=== PATIENT | male | born 1955 | race Caucasian/White ===

== ENCOUNTER 2020-10-01 09:20 | Inpatient (IN) ==
--- NOTE | 2020-09-16 12:47 | PAT Medication Instructions ---
Medication Instructions Date of Service September 16, 2020 Home Medications amlodipine 10 mg PO QAM aspirin 81 mg PO QAM gabapentin 300 mg PO TID hydrochlorothiazide 25 mg PO QAM lisinopril 40 mg PO QAM meloxicam 15 mg PO DAILY PRN tramadol 50 mg PO BID PRN ASK your surgeon for instructions aspirin 81 mg PO QAM meloxicam 15 mg PO DAILY PRN DO NOT take the morning of surgery hydrochlorothiazide 25 mg PO QAM lisinopril 40 mg PO QAM Take morning of surgery With a small sip of water, OTHERWISE NOTHING TO EAT OR DRINK AFTER MIDNIGHT: amlodipine 10 mg PO QAM gabapentin 300 mg PO TID tramadol 50 mg PO BID PRN (if needed, may be taken up to four hours before surgery) Take evening before surgery gabapentin 300 mg PO TID tramadol 50 mg PO BID PRN (if needed) Other Notes If you have any questions please call us at [phone] or [phone] or [phone] or [phone]
--- NOTE | 2020-09-17 14:37 | Anesthesiology Consultation ---
Date of Service September 17, 2020 Assessment & Plan (1) Encounter for pre-operative examination: COVID Status: As of 09/17 assessment, patient denies travel to endemic area, known exposure/sick contacts, or symptoms of COVID19. Patient advised to adhere to social distancing guidelines, wear a mask in public and avoid large crowds or unnecessary travel in the 2 weeks leading up to surgery. Preoperative COVID19 testing to be completed prior to surgery per surgeon's arrangements. Patient encouraged to be extra cautious/conscientious with COVID precautions between COVID testing and surgery. Note sent to PCP re: abnormal CXR. Chart Review Chart Review: Acceptable Risk for Surgery (pending surgeon-orderred PCP clearance) and Patient seen in Pre Admission Testing Teaching & Discussion Instructed NPO after midnight before surgery, except medications with 15 cc of water. Medication instructions provided according to the PAT guidelines. History Surgery Operation Date: 10/01/20 09:20 Proposed Procedures p Left Posterior Total Hip Arthroplasty - Daron Mendoza DO Height/Weight Height: 5 ft 11 in Weight: 113.4 kg Allergies Allergy/AdvReac Type Severity Reaction Status Date / Time Xpyybrh-Kzv-Aqw Reductase Allergy Mild hives, n/v Verified 09/04/20 12:34 Inhibitor Medications Home Medications Medication Instructions Recorded Confirmed Last Taken amlodipine 10 mg PO QAM 09/04/20 09/04/20 Unknown aspirin 81 mg PO QAM 09/04/20 09/04/20 Unknown gabapentin 300 mg PO TID 09/04/20 09/04/20 Unknown hydrochlorothiazide 25 mg PO QAM 09/04/20 09/04/20 Unknown lisinopril 40 mg PO QAM 09/04/20 09/04/20 Unknown meloxicam 15 mg PO DAILY PRN 09/04/20 09/04/20 Unknown tramadol 50 mg PO BID PRN 09/04/20 09/04/20 Unknown Past Medical History Medical History Hyperlipidemia Hypertension Osteoarthritis Spinal stenosis Exercise / Class Metabolic Activity II 4-5 Yardwork/Stairs/Walk up hill (Pt is limited only back hip and back pain, but could otherwise do 1 FOS without CP or SOB) Past Surgical History Surgical History Hx of adenoidectomy Past Anesthesia History No Hx of Anesthesia Complications and No Family Hx of Anesthesia Complications History of PONV No Hx of PONV and No Hx of Motion Sickness Social History Smoking Status: Current every day smoker tobacco type: cigarettes Smoking cigarettes per day: 10 cig a day Do You Dip or Chew Tobacco: No Hx Alcohol Use: Yes Alcohol type: beer alcohol intake frequency: a few times a month Hx Substance Use: No substance use type: does not use Review of Systems Pt denies any recent chest pain, shortness of breath, palpitations, cough, fever, URI, or uncontrolled acid reflux. Physical Exam Vital Signs BP: 134/81 P: 77bpm SPO2: 95% RA T: 98.3 F R: 16 ENMT Mouth: + dentures (full set) and + edentulous Thyromental Distance: > or= 3.5 Finger Breadths Mallampati Class: II Neck + short neck; neck extension not limited Respiratory normal respiratory effort, lungs clear to auscultation Cardiovascular RRR, no murmur, no edema Vessels: no carotid bruit Testing Laboratory Results 09/17/20 14:52 09/17/20 14:52 PT 9.9 Seconds (9.0-12.0) 09/17/20 14:52 INR 1.0 (0.9-1.1) 09/17/20 14:52 APTT 26.1 Seconds (21.0-31.0) 09/17/20 14:52 Hemoglobin A1c 5.4 % (4.5-5.6) 09/17/20 14:52 Urine Color Yellow 09/17/20 Unknown Urine Appearance Clear (Clear) 09/17/20 Unknown Urine pH 5.5 (4.5-7.5) 09/17/20 Unknown Ur Specific [place] 1.020 (1.000-1.030) 09/17/20 Unknown Urine Protein Negative (Negative) 09/17/20 Unknown Urine Glucose (UA) Negative (Negative) 09/17/20 Unknown Urine Ketones Trace (Negative) H 09/17/20 Unknown Urine Nitrite Negative (Negative) 09/17/20 Unknown Ur Leukocyte Esterase Negative (Negative) 09/17/20 Unknown Blood Type AB Negative 09/17/20 14:52 Antibody Screen NEGATIVE 09/17/20 14:52 Electrocardiogram Date: 09/17/20 Findings: + NSR @ (79bpm) Right axis deviation. Chest X-Ray Date: 09/17/20 FINDINGS: PA and lateral chest radiographs are obtained. No prior studies are available for comparison at the time of dictation. The cardiomediastinal silhouette is unremarkable noting atherosclerotic calcification of the thoracic aorta. Emphysematous change is noted. Interstitial thickening is likely chronic. No airspace consolidation or pleural effusion is identified. An indeterminant density projects over the left lung base. There is no pneumothorax. The bony thorax appears intact. IMPRESSION: 1. Emphysematous change with no acute cardiopulmonary abnormality. 2. An indeterminant density projects over the left lung base. This is indeterminant and may represent overlying breast tissue. Correlation with a chest CT is recommended for further assessment and 2 exclude underlying pulmonary lesion. Faxed to PCP for their f/u. Pt to see PCP for clearance on 09/19.
--- NOTE | 2020-09-17 15:25 | XRay Report ---
TWO VIEW CHEST CLINICAL HISTORY: Preoperative examination. Current smoker. History of hypertension. FINDINGS: PA and lateral chest radiographs are obtained. No prior studies are available for compariso n at the time of dictation. The cardiomediastinal silhouette is unremarkable noting atherosclerotic c alcification of the thoracic aorta. Emphysematous change is noted. Interstitial thickening is likely chronic. No airspace consolidation or pleural effusion is identified. An indeterminant density projec ts over the left lung base. There is no pneumothorax. The bony thorax appears intact. IMPRESSION: 1. Emphysematous change with no acute cardiopulmonary abnormality. 2. An indeterminant density projects over the left lung base. This is indeterminant and may represent overlying breast tissue. Correlation with a chest CT is recommended for further assessment and 2 exc lude underlying pulmonary lesion. ACT 112: Positive. There are findings on this exam that require communication between the performing entity and the patient following Patient Test Result Information Act ([place] Act 112) guidelines. Electronically signed by: Giovani Suazo M.D. 09/17/2020 3:24 PM
[2020-09-17 15:54] LABS: Basophils # (auto) 0.02 K/uL (0-0.2); Basophils % (auto) 0.1 %; Eosinophils # (auto) 0.07 K/uL (0-0.5); Eosinophils % (auto) 0.5 %; Hematocrit (blood only) 45.1 % (42-52); Hemoglobin 15.5 g/dL (14.0-18.0); Immature Granulocytes # (auto) 0.04 K/uL (0.00-0.02); Immature Granulocytes % (auto) 0.3 %; Lymphocytes # (auto) 3.28 K/uL (1.2-3.4); Lymphocytes % (auto) 24.6 %; Mean Corpuscular Hemoglobin 31.8 pg (25-34); Mean Corpuscular Hgb Conc 34.4 g/dL (32-36); Mean Corpuscular Volume 92.4 fL (80-100); Mean Platelet Volume 10.1 fL (7.4-10.4); Monocytes # (auto) 1.12 K/uL (0.11-0.59); Monocytes % (auto) 8.4 %; Neutrophils # (auto) 8.83 K/uL (1.4-6.5); Neutrophils % (auto) 66.1 %; Platelet Count 348 K/uL (130-400); RDW Coefficient of Variation 13.3 % (11.5-14.5); RDW Standard Deviation 44.6 fL (36.4-46.3); Red Blood Count 4.88 M/uL (4.7-6.1); White Blood Count 13.36 K/uL (4.8-10.8)
[2020-09-17 16:10] LABS: Partial Thromboplastin Time 26.1 Seconds (21.0-31.0); Prothrombin Time 9.9 Seconds (9.0-12.0)
[2020-09-17 16:29] LABS: Albumin Level 3.6 gm/dl (3.4-5.0); BUN Creatinine Ratio 14.7 (10-20); Calcium 9.5 mg/dl (8.5-10.1); Creatinine Clr Calc Pharmacy 87.8 ml/min; Est GFR (African American) 84.3 ml/min; Est GFR (Non-African American) 72.8 ml/min; Potassium 4.8 mmol/L (3.5-5.1)
[2020-09-17 16:35] LABS: Appearance Urine Clear (Clear); Bilirubin Urine Negative (Negative); Blood Urine Negative (Negative); Color Urine Yellow; Glucose Urine UA Negative (Negative); Ketones Urine Trace (Negative); Leukocyte Esterase Urine Negative (Negative); Nitrite Urine Negative (Negative); Protein Urine Negative (Negative); Urobilinogen Urine Negative (Negative); pH Urine 5.5 (4.5-7.5)
--- NOTE | 2020-09-17 17:10 | Electrocardiogram Report ---
Test Reason : Blood Pressure : / mmHG Vent. Rate : 079 BPM Atrial Rate : 079 BPM P-R Int : 178 ms QRS Dur : 094 ms QT Int : 388 ms P-R-T Axes : 070 131 065 degrees QTc Int : 444 ms Normal sinus rhythm Right axis deviation Abnormal ECG No previous ECGs available Confirmed by Eliezer Johnson ([id number]) on 09/17/2020 5:10:26 PM Referred By: Daron Mendoza Confirmed By:Teto Johnson
[2020-09-18 06:54] LABS: Estimated Average Glucose 108 mg/dl; Hemoglobin A1C 5.4 % (4.5-5.6)
--- NOTE | 2020-09-28 13:08 | History & Physical Report ---
Date of Service October 01, 2020 Assessment & Plan (1) Degenerative joint disease of left hip: I have indicated the patient for left total hip replacement. The risks, benefits and complications of surgery were explained to the patient which include but not limited to infection, acute blood loss, DVT/PE, injury to nerves, vessels, bone, soft tissue, arthrofibrosis, chronic pain, failure of the prosthesis, hip dislocation, leg length discrepancy, need for additional surgery, cardiac and pulmonary events and . The patient wished to proceed with surgery and informed consent was obtained at this time. We will plan for 81mg ASA BID post-operatively for DVT prophylaxis. Upon discharge the patient will be discharged home with home health services. Appropriate clearances by PCP were obtained. History of Present Illness Chief Complaint: Left hip pain/DJD/AVN Primary Care Provider: Jace Delvalle The patient is a 65 year old male who presents with complaints of severe left hip pain and DJD/AVN. The patient has failed outpatient conservative treatments to this point which included NSAIDs, activity modification, home exercise/w alking program. The patient's pain and limited function have progressed to the point where they severely hinder their activities of daily living and they no longer tolerate exercise programs. They are requesting to proceed with total hip replacement surgery. Allergies Allergy/AdvReac Type Severity Reaction Status Date / Time Nsbrsfe-Bsj-Lso Reductase Allergy Mild hives, n/v Verified 10/01/20 09:56 Inhibitor Home Medications Medication Instructions Recorded Confirmed Type amlodipine 10 mg PO QAM 09/04/20 10/01/20 History aspirin 81 mg PO QAM 09/04/20 10/01/20 History gabapentin 300 mg PO TID 09/04/20 10/01/20 History hydrochlorothiazide 25 mg PO QAM 09/04/20 09/04/20 History lisinopril 40 mg PO QAM 09/04/20 09/04/20 History meloxicam 15 mg PO DAILY PRN 09/04/20 10/01/20 History tramadol 50 mg PO BID PRN 09/04/20 10/01/20 History Past Med/Surg History Medical History (Updated 10/01/20 @ 11:13 by Bryant Escamilla MD) Hyperlipidemia Hypertension Obesity Osteoarthritis Smoker Spinal stenosis Surgical History Hx of adenoidectomy Social History Smoking Status: Current every day smoker Cigarettes Per Day: 10 cig a day; Second Hand Exposure: No; Do You Dip or Chew Tobacco: No; Tobacco Cessation Education Requested by Patient: No Hx Alcohol Use: Yes Alcohol type: beer Hx Substance Use: No Preferred Language: Slovenian Communication Ability: Effective Housing Manager Required: No Beliefs That Will Affect Care: None Current Living Situation: Spouse Other Information That Helps Us Care for You: No Feels Safe at Home: Yes Safety Concerns: Feels Safe At This Time Assistive Devices: Denture - Upper, Denture - Lower and Glasses Review of Systems Review of Systems: All systems reviewed & are unremarkable except as noted in HPI & below Constitutional: as per Subjective / HPI Physical Exam Physical Exam: LLE NVSI +EHL/FHL/TA/GS SILT grossly, +2 DP pulse, compartments soft NT, limited painful ROM of the hip, antalgic gait. Constitutional: WD/WN, vitals as above Eyes: PERRL, conjunctivae normal, anicteric sclerae ENMT: external ear and nose normal, oropharynx normal Neck: trachea midline, no thyromegaly Respiratory: normal respiratory effort, lungs clear to auscultation Cardiovascular: RRR, no murmur, no edema Gastrointestinal (Abdomen): normal bowel sounds, soft, nontender, no hepatosplenomegaly Musculoskeletal: no cyanosis or clubbing, extremities motor strength 5/5 Skin: no rashes, warm and dry Neurologic: patellar DTR's 2+ bilat, sensation intact Psychiatric: A+Ox3, euthymic affect Lymphatic: no cervical or axillary lymphadenopathy Results & Data Results & Data ([facility]) Diagnostic Findings Multiple views of the hip demonstrates severe DJD with complete loss of the joint space. +osteophytes, +sclerosis, +subchondral cysts. 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 Pre Admission Testing Addendum Laboratory Results 09/17/20 14:52 09/17/20 14:52 PT 9.9 Seconds (9.0-12.0) 09/17/20 14:52 INR 1.0 (0.9-1.1) 09/17/20 14:52 APTT 26.1 Seconds (21.0-31.0) 09/17/20 14:52 Hemoglobin A1c 5.4 % (4.5-5.6) 09/17/20 14:52 Urine Color Yellow 09/17/20 Unknown Urine Appearance Clear (Clear) 09/17/20 Unknown Urine pH 5.5 (4.5-7.5) 09/17/20 Unknown Ur Specific [place] 1.020 (1.000-1.030) 09/17/20 Unknown Urine Protein Negative (Negative) 09/17/20 Unknown Urine Glucose (UA) Negative (Negative) 09/17/20 Unknown Urine Ketones Trace (Negative) H 09/17/20 Unknown Urine Nitrite Negative (Negative) 09/17/20 Unknown Ur Leukocyte Esterase Negative (Negative) 09/17/20 Unknown Blood Type AB Negative 09/17/20 14:52 Antibody Screen NEGATIVE 09/17/20 14:52 09/17/20 Unknown Urine Culture - Final Urine,Clean Catch No growth - less than 1,000 colonies/mL.
[~2020-10-01 09:20] MED LIST: ACETAMINOPHEN 500 MG TAB PO SCH; BUPIVACAINE 0.5 % 5 MG/1 ML PF 10ML VIAL ONE; CeleBREX 200 MG CAP PO SCH; FAMOTIDINE 20 MG TAB PO SCH; LR 500ML BOLUS, THEN 15ML/HR IV SCH; ROPIVACAINE 0.5% HCL/PF 150 MG, BUPIVACAINE 0.75% MPF 20 ML, EPINEPHrine 30MG/30ML (OR ... INSTIL SCH; TRANEXAMIC ACID 1,000 MG **IV Intra-op IV SCH; TRANEXAMIC ACID 1,000 MG **IV Pre-op IV SCH; ceFAZolin 2000MG 2,000 MG/15 ML SYR IV SCH; dexAMETHasone 4 MG TAB PO SCH
[2020-10-01] MEDS ORDERED: fentaNYL citrate 100 MCG/2 ML VIAL IV PRN (09:41)
[2020-10-01] MEDS ORDERED: ONDANSETRON INJ 2 MG/ML 2 ML VIAL IV PRN ×2 (09:41→15:39)
[2020-10-01] MEDS ORDERED: ePHEDrine sulfate 50 MG/ML AMP IV PRN (09:41)
[2020-10-01] MEDS ORDERED: ATROPINE SULFATE 0.1 MG/ML 10ML SYR IV PRN (09:41)
[2020-10-01] MEDS ORDERED: MEPERIDINE HCL 25 MG/ML CARP/VIAL IV PRN (09:41)
[2020-10-01] MEDS ORDERED: LABETALOL HCL IV 5 MG/ML 20ML IV PRN (09:41)
[2020-10-01] MEDS ORDERED: HYDROmorphone INJ 1 MG/ML SYRINGE IV PRN (09:41)
[2020-10-01] MEDS ORDERED: PHENYLEPHRINE 100MCG/ML 5ML SYR IV PRN (09:41)
[2020-10-01] MEDS ORDERED: PROPOFOL IV EMULSION 10 MG/ML 20 ML VIAL IV ONE ×4 (10:19→13:17)
[2020-10-01] MEDS ORDERED: MIDAZOLAM HCL 1 MG/ML 2ML VIAL ONE (10:19)
[2020-10-01] MEDS ORDERED: fentaNYL citrate 100 MCG/2 ML VIAL ONE (10:19)
--- NOTE | 2020-10-01 11:37 | History & Physical Bridge Note ---
Date of Service October 01, 2020 History & Physical Bridge Note I have examined the patient, reviewed the History & Physical and in the interval since the performance of the History & Physical I have noted the following changes of clinical significance: no changes noted
[2020-10-01] MEDS ORDERED: ORTHO JOINT ANESTHETIC ONE (12:06)
[2020-10-01] MEDS ORDERED: KETAMINE 50 MG/5 ML SYRINGE ONE (12:18)
--- NOTE | 2020-10-01 13:51 | Post Operative Brief Note ---
Immediate Post Op Note v1 Date of Surgery October 01, 2020 Pre & Post Diagnosis Operation Date: 10/01/20 11:55 Pre-Op Diagnosis: Unilateral Primary Osteoarthritis, Left Hip Post-Op Diagnosis: Unilateral Primary Osteoarthritis, Left Hip I identified the patient and participated in the time-out.: Yes Procedure Operation Date: 10/01/20 11:55 Actual Procedures p Left Posterior Total Hip Arthroplasty(Left) - Daron Mendoza DO Surgeon Daron Mendoza DO Synchronizer German Loya Estimated Blood Loss 205 Findings Consistent with Post-Op Diagnosis Fluids See anesthesia report Specimens Femoral head Anesthesia Type Spinal MAC Complications none Disposition Disposition: Recovery Room Overlapping Procedure I was present for: the critical portions of procedure. I was immediately available: during the entire case. Back up surgeon: was not required during procedure.
--- NOTE | 2020-10-01 13:55 | Operative Report ---
Post Operative Report Pre & Post Diagnosis Operation Date: 10/01/20 11:55 Pre-Op Diagnosis: Unilateral Primary Osteoarthritis, Left Hip Post-Op Diagnosis: Unilateral Primary Osteoarthritis, Left Hip I identified the patient and participated in the time-out.: Yes Procedure Operation Date: 10/01/20 11:55 Actual Procedures p Left Posterior Total Hip Arthroplasty(Left) - Daron Mendoza DO Surgeon Daron Mendoza DO Preparation Center Coordinator German Loya Estimated Blood Loss 205 Findings Consistent with Post-Op Diagnosis Fluids See anesthesia report Specimens Femoral head Anesthesia Type Spinal MAC Complications none Disposition Disposition: Recovery Room Indications The patient is a 66-year-old male who presents with severe progressive left hip DJD/AVN who has failed outpatient conservative treatments. I indicated the patient for a total hip replacement and the risks and benefits were explained in detail which included but not limited to infection, bleeding, blood clot, damage to surrounding bone, nerves, vessels, soft tissue, hip dislocation, failure of the prosthesis, leg length discrepancy, need for additional surgery and . The patient agreed to proceed with replacement of the hip and informed consent was obtained. Appropriate clearances were obtained. Description of Procedure COMPONENTS USED: Iván Biomet hip system: Acetabulum size 52, femur size 16.25 extended offset, femoral head 36+7, liner 52x36, acetabular screw 30 mm x 1. Following induction of adequate spinal anesthesia, the patient was transferred to the OR table and placed in lateral decubitus position with right hip down. The left hip was prepped and draped in the typical sterile fashion. A timeout was performed, patient identified and site eileen confirmed. Appropriate antibiotics were given. A standard posterolateral/Elizabeth-[place]en[place] incision was made. Subcutaneous tissue was sharply dissected. Electrocautery was utilized for hemostasis. The fascia was incised throughout the length of the wound and retracted with the Charnley retractor. The bursa was taken down and the short external rotators were identified. The piriformis was tagged with #1 Vicryl. The short external rotators and capsule were divided from the posterior aspect of the femur using electrocautery. The posterior capsule was tagged with #1 Vicryl. Both external rotators and posterior capsule were swept posterior and protected, along with protecting the sciatic nerve. The hip was dislocated by flexion and internally rotation in a controlled manner and exposure of the femoral neck was gained with an old-style Hohmann and a blunt cobra retractor. A femoral cutting guide was utilized for making the appropriate level femoral neck cut with reciprocating saw. The femoral head was removed, measured and reserved on the back table. Next, attention was turned to the acetabulum. A posterior and anterior offset retractor was placed to gain adequate exposure. Acetabular labrum as well as posterior capsule elements were removed using electrocautery and forceps. Fovea centralis was cleared of all soft tissue. Sequential reaming was performed starting at 46 mm and carried up to a 51 mm and decision was made to proceed with impaction of a 52 mm G7 Osteo-Ti cup. This was impacted and held using a single 30 mm acetabular screw. The trial acetabular liner was placed at this time. Next, attention was turned to the proximal femur where a Bovie and pickup was used to further clear short external rotators from their insertion on the femur. Box osteotome and canal finder was used to gain access to the femoral canal and the lateral reamer on power was used to further open the proximal lateral canal. Sequentially rasping was carried up to a 16.25 which gave good fit and fill of the proximal femur. A trial reduction was carried out with a extended offset femoral neck component a 36+7 mm femoral head. The trial reduction was stable in all degrees of rotation with no [id number] impingement. The hip was dislocated, trial components were removed and access to the acetabulum was re-established. The trial liner was removed and the cup was irrigated to ensure all debris was removed. The final acetabular liner was inserted and properly seated in the cup. Access to the femur was once more gained and the size 16.25 femoral stem with extended offset was impacted into position. The hip was once more assessed with the 36+7 mm femoral head. Stability was accessed and found to be excellent with equal leg lengths. The hip was dislocated for the last time and the final 36+7 ceramic femoral head was impacted in place and the hip was reduced. Range of motion was checked once again and found to be stable. A Betadine soak was performed. After 3 minutes, the hip was once more irrigated with copious sterile saline solution with bacitracin. The geneva-incisional soft tissue was injected utilizing [place] ortho mix which includes a combination of Ropivicaine 0.5% 150mg, Bupivicaine 0.5%/Epinephrine 1:200,000 30ml, Toradol 30mg, Dexamethasone 4mg, Ketamine 10mg, Clonidine 100mcg and NSS 30ml Orthomix solution. The p iriformis, external rotators and capsule were repaired to the greater trochanter through bone tunnels using #5 FiberWire. The fascia was closed using #1 Vicryl, subcutaneous tissue was closed using 2-0 Vicryl, and skin was closed with mary and a sterile dry dressing was applied which included joan incisional VAC. The patient tolerated the procedure well and was transported to PACU in stable condition. Due to the complex nature of the procedure, the entire surgery was performed with the operational assistance of German Loya PA-C. The office clerk assistant, under direct supervision, was involved in the actual performance of all aspects of the surgical procedure including patient positioning, hemostasis, tissue retraction, instrument management and wound closure. I attest to the content of the Intraoperative Record and any orders documented therein. Any exceptions are noted below.
--- NOTE | 2020-10-01 14:49 | XRay Report ---
XR hip 1V LT w pelvis CLINICAL HISTORY: Postoperative evaluation. COMPARISON: None FINDINGS: Alignment of the total left hip arthroplasty is anatomic. There is no periprosthetic fract ure or unexpected radiopaque foreign body. There are skin mary. There is an acetabular screw. IMPRESSION: Expected findings following total left hip arthroplasty. ACT 112: Negative or not required by law. Electronically signed by: Ovidio Alarcon M.D. 10/01/2020 2:47 PM
--- NOTE | 2020-10-01 14:57 | Anesthesiology Progress Note ---
Date of Service October 01, 2020 Anesthesia Post Procedure Vital Signs Vital Signs: Temp Pulse Pulse Resp BP BP Pulse Ox 10/01/20 14:50 63 20 116/69 96 10/01/20 14:40 36.2 C L 66 16 118/79 95 10/01/20 14:30 69 16 114/79 97 10/01/20 14:20 66 16 120/71 97 10/01/20 14:13 36.8 C 88 20 96/74 L 96 10/01/20 10:37 36.8 C 80 20 150/95 H 95 10/01/20 10:02 36.9 C 81 20 183/96 H 98 Pain Intensity Left Hip: Pain Intensity: 1 Transfer of Care Handoff Completed per policy Notes Mental Status: alert / awake / arousable Patient Amnestic to Procedure: Yes Nausea / Vomiting: adequately controlled Pain: adequately controlled Airway Patency, RR, SpO2: stable & adequate BP & HR: stable & adequate Hydration State: stable & adequate Neuraxial Anesthesia: was administered and sensory block is resolving Anesthetic Complications: no major complications apparent and Pt Satisfied with anesthetic care
--- NOTE | 2020-10-01 15:02 | Orthopedic Progress Note ---
Date of Service October 01, 2020 Assessment & Plan (1) Degenerative joint disease of left hip: Status post left total hip arthroplasty -Ancef x24 -DVT prophylaxis: SCDs, teds, 81 mg ASA twice daily -Weight-bear as tolerated left lower extremity with assistive device -PT/OT -Posterior hip precautions -Postoperative x-ray demonstrates well aligned well fixed prosthesis without fracture or dislocation -A.m. labs -DC planning Subjective Post Operative Progress Note Patient seen in PACU, comfortable, denies complaints, pain well controlled, no acute issues. Review of Systems Review of Systems: All systems reviewed & are unremarkable except as noted in HPI & below Constitutional: as per Subjective / HPI Physical Exam Physical Exam: Left lower extremity physical exam limited secondary to spinal anesthesia, +2 dorsalis pedis pulse, compartment soft nontender, dressing clean dry and intact. Constitutional: WD/WN, vitals as above Results & Data ([place]) Vital Signs (Past 12 Hours) Vital Signs Temp Pulse Pulse Resp BP BP Pulse Ox 10/01/20 15:00 75 20 115/81 98 10/01/20 14:50 63 20 116/69 96 10/01/20 14:40 36.2 C L 66 16 118/79 95 10/01/20 14:30 69 16 114/79 97 10/01/20 14:20 66 16 120/71 97 10/01/20 14:13 36.8 C 88 20 96/74 L 96 10/01/20 10:37 36.8 C 80 20 150/95 H 95 10/01/20 10:02 36.9 C 81 20 183/96 H 98
[2020-10-01] MEDS: SODIUM CHLORIDE 0.9% 1000ML 1,000 ML IV SCH (15:30)
[2020-10-01] MEDS ORDERED: diphenhydrAMINE Capsule 25 MG CAP PO PRN (15:39)
[2020-10-01] MEDS ORDERED: NALOXONE HCL 0.4 MG/1 ML VIAL/CARP IV PRN (15:39)
[2020-10-01] MEDS ORDERED: bisacodyL 10 MG SUPP PR PRN (15:39)
[2020-10-01] MEDS ORDERED: METOCLOPRAMIDE HCL INJ 5 MG/ML 2 ML VIAL IV PRN (15:39)
[2020-10-01] MEDS ORDERED: MAGNESIUM HYDROXIDE SUSP 30 ML UDC PO PRN (15:39)
[2020-10-01] MEDS ORDERED: HYDROmorphone INJ 0.5 MG/0.5 ML SYR IV PRN (15:39)
[2020-10-01] MEDS ORDERED: ceFAZolin 2000MG 2,000 MG/15 ML SYR IV SCH (15:39)
[2020-10-01] MEDS: KETOROLAC TROMETHAMINE 15 MG/ML VIAL IV SCH ×2 (16:59→22:57)
[2020-10-01] MEDS: ACETAMINOPHEN 500 MG TAB PO SCH ×2 (16:59→22:57)
[2020-10-01] MEDS: ceFAZolin 3,000 MG in DEXTROSE 5% 50 ML IV SCH (18:29)
[2020-10-01] MEDS: DOCUSATE SODIUM 100 MG CAP PO SCH (20:11)
[2020-10-01] MEDS: oxyCODONE HCL IR 5 MG TAB (IMMEDIATE RELEASE) PO PRN (20:11)
[2020-10-01] MEDS: GABAPENTIN 300 MG CAP PO SCH (20:11)
[2020-10-01] MEDS ORDERED: SENNA 8.6 MG TAB PO SCH (21:00)
[2020-10-02] MEDS: ceFAZolin 3,000 MG in DEXTROSE 5% 50 ML IV SCH ×2 (02:10→09:48)
[2020-10-02] MEDS: oxyCODONE HCL IR 5 MG TAB (IMMEDIATE RELEASE) PO PRN ×3 (02:12→12:31)
[2020-10-02] MEDS: SODIUM CHLORIDE 0.9% 1000ML 1,000 ML IV SCH (02:52)
[2020-10-02] MEDS: KETOROLAC TROMETHAMINE 15 MG/ML VIAL IV SCH ×2 (03:17→09:49)
[2020-10-02] MEDS: ACETAMINOPHEN 500 MG TAB PO SCH (05:25)
[2020-10-02 06:45] LABS: Basophils # (auto) 0.01 K/uL (0-0.2); Hematocrit (blood only) 38.4 % (42-52); Immature Granulocytes # (auto) 0.08 K/uL (0.00-0.02); Immature Granulocytes % (auto) 0.4 %; Lymphocytes # (auto) 1.51 K/uL (1.2-3.4); Lymphocytes % (auto) 6.7 %; Mean Corpuscular Hemoglobin 31.6 pg (25-34); Mean Corpuscular Hgb Conc 33.9 g/dL (32-36); Mean Corpuscular Volume 93.2 fL (80-100); Mean Platelet Volume 9.9 fL (7.4-10.4); Monocytes # (auto) 1.41 K/uL (0.11-0.59); Monocytes % (auto) 6.2 %; Neutrophils # (auto) 19.57 K/uL (1.4-6.5); Neutrophils % (auto) 86.7 %; Platelet Count 284 K/uL (130-400); RDW Coefficient of Variation 13.2 % (11.5-14.5); RDW Standard Deviation 45.3 fL (36.4-46.3); Red Blood Count 4.12 M/uL (4.7-6.1); White Blood Count 22.58 K/uL (4.8-10.8)
[2020-10-02 07:16] LABS: BUN Creatinine Ratio 18.3 (10-20); Calcium 8.4 mg/dl (8.5-10.1); Est GFR (African American) 91.6 ml/min; Potassium 4.6 mmol/L (3.5-5.1)
[2020-10-02] MEDS: GABAPENTIN 300 MG CAP PO SCH (08:45)
[2020-10-02] MEDS: DOCUSATE SODIUM 100 MG CAP PO SCH (08:45)
[2020-10-02] MEDS ORDERED: MULTIVITAMIN TAB PO SCH (09:00)
[2020-10-02] MEDS ORDERED: hydroCHLOROthiazide 25 MG TAB PO SCH (09:00)
[2020-10-02] MEDS ORDERED: lisinopril 40 MG TAB PO SCH (09:00)
[2020-10-02] MEDS ORDERED: ASPIRIN 81 MG ECTAB PO SCH (09:00)
[2020-10-02] MEDS ORDERED: amLODIPine BESYLATE 5 MG TAB PO SCH (09:00)
--- NOTE | 2020-10-02 11:33 | Orthopedic Progress Note ---
Date of Service October 02, 2020 Assessment & Plan (1) Degenerative joint disease of left hip: Status post left total hip arthroplasty POD#1 -Ancef x24 -DVT prophylaxis: SCDs, teds, 81 mg ASA twice daily -Weight-bear as tolerated left lower extremity with assistive device -PT/OT -Posterior hip precautions -Postoperative x-ray demonstrates well aligned well fixed prosthesis without fracture or dislocation -A.m. labs - as above, hgb 13.0 -DC planning - home with Admission and Anticipated Discharge Date Admission Date: October 01, 2020 Subjective Post Operative Progress Note Patient seen sitting up in bed, comfortable, denies complaints, pain well controlled, no acute issues. Denies F/C/N/V/SOB/CP. Review of Systems Review of Systems: All systems reviewed & are unremarkable except as noted in HPI & below Constitutional: as per Subjective / HPI Physical Exam Physical Exam: LLE NVSI +EHL/FHL/TA/GS SILT grossly, +2 DP pulse, compartments soft NT, dressing cdi. Constitutional: WD/WN, vitals as above Results & Data ([facility]) Vital Signs (Past 12 Hours) Vital Signs Temp Pulse Resp BP Pulse Ox 10/02/20 07:38 36.7 C 69 18 150/84 H 97 10/02/20 03:30 36.7 C 77 18 137/75 95 Laboratory Results 10/02/20 10/02/20 Range/Units 06:15 06:15 WBC 22.58 H (4.8-10.8) K/uL RBC 4.12 L (4.7-6.1) M/uL Hgb 13.0 L (14.0-18.0) g/dL Hct 38.4 L (42-52) % MCV 93.2 (80-100) fL MCH 31.6 (25-34) pg MCHC 33.9 (32-36) g/dL RDW Std Deviation 45.3 (36.4-46.3) fL RDW Coeff of Kavitha 13.2 (11.5-14.5) % Plt Count 284 (130-400) K/uL MPV 9.9 (7.4-10.4) fL Immature Gran % (Auto) 0.4 % Neut % (Auto) 86.7 % Lymph % (Auto) 6.7 % Edmunds % (Auto) 6.2 % Eos % (Auto) 0.0 % Baso % (Auto) 0.0 % Neut # (Auto) 19.57 H (1.4-6.5) K/uL Lymph # (Auto) 1.51 (1.2-3.4) K/uL Edmunds # (Auto) 1.41 H (0.11-0.59) K/uL Eos # (Auto) 0.00 (0-0.5) K/uL Baso # (Auto) 0.01 (0-0.2) K/uL Immature Gran # (Auto) 0.08 H (0.00-0.02) K/uL Sodium 136 (136-145) mmol/L Potassium 4.6 (3.5-5.1) mmol/L Chloride 107 (98-107) mmol/L Carbon Dioxide 23 (21-32) mmol/L Anion Gap 6.0 (3-11) BUN 18 (7-18) mg/dl Creatinine 0.99 (0.6-1.4) mg/dl Est Cr Clr Drug Dosing 93.0 ml/min Est GFR ( Amer) 91.6 ml/min Est GFR (Non-Af Amer) 79.0 ml/min BUN/Creatinine Ratio 18.3 (10-20) Glucose 145 H (70-99) mg/dl Calcium 8.4 L (8.5-10.1) mg/dl
[2020-10-02] MEDS ORDERED: CeleBREX 200 MG CAP PO SCH (21:00)
--- NOTE | 2020-10-02 22:49 | Discharge Summary ---
Date of Service October 02, 2020 Admission HPI Per Admitting Provider The patient is a 65 year old male who presents with complaints of severe left hip pain and DJD/AVN. The patient has failed outpatient conservative treatments to this point which included NSAIDs, activity modification, home exercise/walking program. The patient's pain and limited function have progressed to the point where they severely hinder their activities of daily living and they no longer tolerate exercise programs. They are requesting to proceed with total hip replacement surgery. Principal Diagnosis Left total hip replacement Discharge Exam LLE NVSI +EHL/FHL/TA/GS SILT grossly, +2 DP pulse, compartments soft NT, dressing cdi. Constitutional WD/WN, vitals as above Discharge Data Allergies Allergy/AdvReac Type Severity Reaction Status Date / Time Ezgfnsn-Vmh-Rth Reductase Allergy Mild hives, n/v Verified 10/01/20 09:56 Inhibitor Procedures Performed Operation Date: 10/01/20 11:55 Actual Procedures p Left Posterior Total Hip Arthroplasty(Left) - Daron Mendoza DO Hospital Course (1) Degenerative joint disease of left hip: The patient is a 65 -year-old male who presents with long standing history of severe left hip DJD and failed outpatient conservative treatments. The patient's symptoms have progressed to the point where it has been difficult to perform even normal activities of daily living. I indicated the patient for a left total hip arthroplasty, the risks, benefits and complications of the procedure include but not limited to infection, bleeding, damage to bone, nerves, vessels, surrounding soft tissue, may develop blood clots, loss of function, leg length discrepancy, dislocation, failure of the components, loosening of the components, the need for additional surgery and . The patient wished to proceed with surgery at this time and informed consent was obtained. Hospital Course: On 10/01/20 the patient was taken to the operating room, adequate anesthesia administered and underwent a left total hip arthroplasty. The patient tolerated the procedure well and was taken to the PACU in stable condition. Post- operatively the patient was started on a DVT ppx medication and given appropriate IV antibiotics. Consults were placed to physical therapy, occupational therapy and case management. On POD#1, the patient did well overnight and their pain was well controlled. Labs were drawn and the Hgb was 13.0. The patient progressed well with PT. Dressings were changed at this time and the incision was clean, dry and intact. The patients hospital stay was relatively uneventful and they were deemed stable by the orthopedic team and consultants to be discharged home with HH on 10/02/20. Discharge Instructions: Upon discharge the patient may weight bear as tolerates through their operative extremity. They were instructed to keep the incision clean and dry at all times . The patient may shower but should not submerge the incision, avoid bathing, pools and hot tubs. The patient was given a script for pain medication and should take as instructed. The patient was given a script for DVT ppx 81mg ASA BID and should take as directed. The patient was instructed to not drive or travel for long distances until cleared to do so. If the patient develops any symptoms of fevers, chills, nausea, vomiting, increased redness, swelling, pain or drainage from the surgical site, they should notify the office and/or proceed to the nearest emergency room. The patient should follow up in 10-14 days after surgery for their routine post-operative follow-up appointment and should call the office, to confirm the date and time. Status post left total hip arthroplasty POD#1 -Ancef x24 -DVT prophylaxis: SCDs, teds, 81 mg ASA twice daily -Weight-bear as tolerated left lower extremity with assistive device -PT/OT -Posterior hip precautions -Postoperative x-ray demonstrates well aligned well fixed prosthesis without fracture or dislocation -A.m. labs - as above, hgb 13.0 -DC planning - home with HH Total Time Total Time Spent Total Time Spent (In Minutes): 30 Discharge Plan Discharge Items Patient Disposition: Home - Home Health Services Reason For Visit: Unilateral Primary Osteoarthritis, Left Hip Discharge Diagnosis: Left total hip replacement Condition on Discharge: Good Activity: Per Instructions section Lifting: Wait until after follow-up appointment Bathing: Keep incision dry Bathing Comment: No bathing, pools or hot tubs. Sexual Activity: Wait until after follow-up appointment Exercise/Sports: Wait until after follow-up appointment Driving/Machine Use: No driving. Weightbearing: Full weightbearing Non-emergency contact: Primary Care Provider and Surgeon Call non-emergency contact if: you have any medication questions, your symptoms worsen, your pain is not controlled, your pain is worsening, your pain is unusual for you, your pain is concerning for you, you have a fever, your temperature is above 101, your wound has increased redness, your wound has increased drainage and your wound pain has increased Follow-up/Referrals: Jace Delvalle MD [Primary Care Provider] - Diet: Regular Addtl Attending Provider Instructions: ACTIVITY RECOMMENDATIONS: SELF CARE INSTRUCTIONS AFTER TOTAL HIP REPLACEMENT Until the incision and soft tissues around your hip have healed, there is a possibility that the hip prosthesis could dislocate. A. Observe the following precautions to prevent dislocation: 1. Don't bend your hip greater than 90 degrees. 2. Avoid crossing your legs or ankles while standing or lying. 3. Sit with your feet placed 6 inches apart. 4. When sitting, keep your knees below your hips. Sit on a firm surface, avoid deep, soft chairs and couches. Use an elevated toilet seat in the bathroom. 5. Don't bend over at the waist. Use a long handled shoehorn and a sock aid to help you put on your shoes and socks. A major assembly lineman can help you picked edge sewing machine operator objects that are too high or too low to reach. 6. Keep car riding to a minimum for at least one month after surgery. B. Your balance may be shaky for a while. Use crutches or a walker until directed by your doctor. C. Use hand rails when walking on stairs. D. Wear low heeled shoes with non-slip soles. E. Be sure that your floors are free of things that could trip you - throw rugs, electrical cords, small objects. Avoid wet and waxed floors, especially with crutches and canes. F. Try to walk several times a day with rest periods between. G. Continue with all the exercises taught to you in the hospital. Again, make walking a part of your daily routine. SPECIAL CARE INSTRUCTIONS: VERY IMPORTANT TO READ AND REVIEW A. You may still be at risk for phlebitis and blood clots. 1. Wear surgical stockings (JUWAN hose) for 2 weeks after surgery to improve circulation and reduce swelling. 2. Take Aspirin 81mg twice daily for 4 weeks or as directed by your doctor. This is your blood thinner. 3. High risk patients may be prescribed a stronger blood thinner if necessary. 4. If you are on Coumadin normally, your family doctor/resp ther should monitor your blood work. Expect a phone call the day of or the day after bloodwork is drawn to adjust your dosage. B. You must take antibiotics before having dental work, bladder, bowel and other surgery. Your doctor will provide you with a permanent card to carry de scribing precautions. C. Call [facility] if you have a fever, redness or swelling around the incision, cloudy drainage from incision, or sudden increase in pain in your hip, not relieved by your regular pain medication. D. Please call the office at if you have any concerns or que stions about your operation or recovery. * YOU MAY SHOWER, NO TUB BATHS UNTIL CLEARED BY YOUR DOCTOR. * WEAR JUWAN HOSE 20 HOURS PER DAY FOR 2 WEEKS. * YOU SHOULD USE A WALKER OR CRUTCHES FOR 2-4 WEEKS. THIS WILL HELP PREVENT STRAIN ON YOUR HIP MUSCLE AND ALLOW IT TO HEAL PROPERLY. YOU MAY WEAN TO A CANE TOLERATED. * MOST PATIENTS WILL HAVE HOME NURSING FOR THERAPY. IF YOU DECIDE TO DO OUTPATIENT PHYSICAL THERAPY, PLEASE SCHEDULE THIS 3 TIMES PER WEEK. *PAM incisional vac is a special dressing covering your incision. This dressing provides a sterile dry environment while you are healing. The dressing is to be left in place for 7 days post-operatively. Your home nurse or surgeon will remove. If you develop any redness or blisters or have any questions notify your surgeon immediately. FOLLOW UP VISIT: If appointment is not already scheduled: Please call [facility] to make a follow-up appointment for 2 weeks after your surgery at . Pending Studies at Discharge: No Stand-Alone Forms: My [facility], Opioid Pain Management, Smoking Cessation Medications and DC Order Prescriptions: New celecoxib [Celebrex] 200 mg Capsule 200 mg PO BID PRN (Reason: pain/inflammation) Qty: 30 RF: 0 aspirin 81 mg Tablet,Delayed Release (Dr/Ec) 81 mg PO BID Qty: 56 RF: 0 acetaminophen 500 mg Tablet 1,000 mg PO Q8 PRN (Reason: pain/fevers) Qty: 90 RF: 0 oxycodone 5 mg Tablet 5 mg PO Q6H MDD 4 PRN (Reason: pain) Qty: 30 RF: 0 sennosides [Senokot] 8.6 mg Tablet 17.2 mg PO HS PRN (Reason: constipation) Qty: 30 RF: 0 Continued amlodipine 10 mg Tablet 10 mg PO QAM RF: 0 hydrochlorothiazide 25 mg Tablet 25 mg PO QAM RF: 0 lisinopril 40 mg Tablet 40 mg PO QAM RF: 0 gabapentin 300 mg Tablet 300 mg PO TID RF: 0 Discontinued meloxicam 15 mg Tablet 15 mg PO DAILY PRN (Reason: Pain) RF: 0 tramadol 50 mg Tablet 50 mg PO BID PRN (Reason: Pain) RF: 0 aspirin 81 mg Tablet 81 mg PO QAM RF: 0 Discharge Orders: Discharge Order (Routine); Ordered 10/02/20 Ordered By: Daron William/Other Patient Handouts: DVT Post Op Prevention Admission Data Admit Date/Time: 10/01/20 14:21 Attending Provider: Daron Mendoza Admit Provider: Daron Mendoza Primary Care Provider: Jace Delvalle Other Interventions: Discharge Summary Assessment (RN) Last Done: 10/02/20 11:41
== END 2020-10-02 13:17 | disposition home health service (06) | DRG 470 ==
LOC: 3E 09:20 → ASU 09:20 → OBSVTOIN 14:21